=== PATIENT | male | born 1990 | race Caucasian/White ===

== ENCOUNTER 2023-12-20 23:18 | Emergency (ER) | payer SELFPAY ==
[~2023-12-20] VITALS: Ht 170.2 cm; Wt 86.2 kg
[2023-12-20 23:51] VITALS: BP 126/77; TEMP 97.7; O2SAT 99
[2023-12-21] MEDS ORDERED: VANCOMYCIN 1 GM in IV D5W 250 ML IV ONE
[2023-12-21] MEDS ORDERED: PIPERACILLIN /TAZOBACTAM 3.375 G in IV D5W 50 ML IV ONE
[2023-12-21] MEDS ORDERED: VANCOMYCIN 1 GM /D5W 250 ML PB IV ONE (00:08)
[2023-12-21] MEDS ORDERED: PIPERACI/TAZO 3.375GM/D5W 50ML PB IV ONE (00:08)
== END 2023-12-21 00:39 | disposition left against medical advice (07) ==
LOC: ER 23:23
DX: L03.114 Cellulitis of left upper limb (principal); F17.200 Nicotine dependence, unspecified, uncomplicated
CPT/HCPCS: 99281; A4223; J2543; J3370; J7060